=== PATIENT | male | born 1945 | race Two or more races ===

== ENCOUNTER 2017-09-30 19:52 | Inpatient (IN) | payer MEDICARE ==
[2017-09-30] MEDS: ASPIRIN 81 MG PO STA ×3 (20:36→20:40)
[2017-09-30 20:41] LABS: Basophils % (A) 0 %; Eosinophils # (A) 0.5 k/uL (0-0.7); Eosinophils % (A) 6 %; HGB 14.8 gm/dL (13.0-17.5); Lymphocytes # (A) 1.8 k/uL (1.0-4.8); Lymphocytes % (A) 21 %; MCHC 32.2 g/dL (31.0-37.0); MCV 86.9 fL (80.0-100.0); Mean Platelet Volume 7.3; Monocytes # (A) 0.5 k/uL (0-1.0); Monocytes % (A) 6 %; Neutrophils # (A) 5.5 k/uL (1.3-7.7); Neutrophils % (A) 65 %; Platelet Count 199 k/uL (150-450); RBC 5.29 m/uL (4.30-5.90); RDW 14.7 % (11.5-15.5); WBC 8.5 k/uL (3.8-10.6)
[2017-09-30 20:53] LABS: Albumin 3.7 g/dL (3.5-5.0); Calcium 9.8 mg/dL (8.4-10.2); Total Bilirubin 0.9 mg/dL (0.2-1.3)
[2017-09-30 20:55] LABS: Partial Thromboplastin Time 22.1 sec (22.0-30.0); Prothrombin Time 9.9 sec (9.0-12.0)
--- NOTE | 2017-09-30 21:02 | XR ---
EXAMINATION TYPE: XR chest 2V DATE OF EXAM: 09/30/2017 COMPARISON: NONE HISTORY: Chest pain TECHNIQUE: Frontal and lateral views of the chest are obtained. FINDINGS: Heart and mediastinum are normal. Lungs are clear. There is hiatal hernia. Diaphragm is no rmal. There are chest leads. Bony thorax is intact. IMPRESSION: No active cardia pulmonary disease. Hiatal hernia.
--- NOTE | 2017-09-30 21:11 | ED ---
Chest Pain HPI - General Chief Complaint: Chest Pain Stated Complaint: chest pain Time Seen by Provider: 09/30/17 20:08 Source: patient Mode of arrival: wheelchair Limitations: no limitations - History of Present Illness Initial Comments: This is a 72-year-old male with a history of CAD with multiple angioplasties in the past who presents emergency department for chest pain. The patient states that he's been having episodes of epigastric pain and burping over the last few weeks. It seems to be associated with food. He states that today however he ate a bagel and developed a burping however then got some significant chest pressure. He states it felt very similar to when he had to have cardiac procedures done in the past. He states that he has not had an angioplasty for approximately 20 years however. The patient states he does not have the chest pain currently. He has no short of breath. No radiation of the pain. No diaphoresis. He states that he's got most of his care out of [facility]. Denies any other acute complaints at this time. - Related Data Home Medications Medication Instructions Recorded Confirmed Aspirin EC [Ecotrin Low Dose] 81 mg PO DAILY 09/30/17 09/30/17 Cholecalciferol (Vitamin D3) 2,000 unit PO DAILY 09/30/17 09/30/17 [Vitamin D3] Levothyroxine Sodium [Synthroid] 100 mcg PO HS 09/30/17 09/30/17 Metoprolol Succinate [Toprol XL] 200 mg PO DAILY 09/30/17 09/30/17 Multivitamin [Men's Multi-Vitamin] 1 tab PO DAILY 09/30/17 09/30/17 Rosuvastatin Calcium [Crestor] 40 mg PO HS 09/30/17 09/30/17 Ubidecarenone [Co Q-10] 100 mg PO DAILY 09/30/17 09/30/17 Allergies Allergy/AdvReac Type Severity Reaction Status Date / Time cashew nut Allergy Swelling Verified 09/30/17 20:52 Fish Containing Products Allergy Swelling Verified 09/30/17 20:52 mold Allergy Swelling Verified 09/30/17 20:52 Penicillins Allergy Swelling Verified 09/30/17 20:52 watermelon Allergy Swelling Verified 09/30/17 20:52 Review of Systems ROS Statement: Those systems with pertinent positive or pertinent negative responses have been documented in the HPI. ROS Other: All systems not noted in ROS Statement are negative. EKG Findings - EKG Comments: EKG Findings:: EKG is showing normal sinus rhythm with a rate of 70. There is no abnormal ST segment changes or T-wave inversions. QTC is 442. Other intervals appear normal. The patient does have multiple PVCs. Past Medical History Past Medical History: Coronary Artery Disease (CAD), GERD/Reflux, Hyperlipidemia , Hypertension, Myocardial Infarction ([place]) History of Any Multi-Drug Resistant Organisms: None Reported Past Surgical History: Adenoidectomy, Heart Catheterization With Stent, Hernia Repair, Tonsillectomy Past Psychological History: No Psychological Hx Reported Smoking Status: Former smoker Past Alcohol Use History: Occasional Past Drug Use History: None Reported General Exam - General Exam Comments Initial Comments: Constitutional: Awake alert Appears comfortable Head: Normocephalic atraumatic Eyes: no conjunctival injection No scleral icterus EOMI Neck: No JVD Supple Heart: Regular rate rhythm normal S1-S2 no murmurs Lungs: Clear to auscultation bilaterally No wheezing No rales Abdomen: Soft nondistended nontender Extremities: Non edematous DP pulses intact Radial pulses intact Neuro: A&Ox3 No focal neurologic deficits Psych: Appropriate mood and affect Limitations: no limitations Course Vital Signs 09/30/17 09/30/17 09/30/17 19:57 20:31 22:43 Temperature 98.0 F 98.0 F Pulse Rate 70 61 54 L Pulse Rate [ 64 Geographic Analyst ] Respiratory 18 18 18 Rate Blood Pressure 166/96 166/91 164/100 O2 Sat by Pulse 98 96 98 Oximetry Chest Pain MDM - MDM Is a 72-year-old male who presents emergency department for chest pain. The patient had an EKG and troponin which were negative. The patient denies having chest pain emergency department. The patient does have a significant history for CAD and thus I like to keep him in the hospital for further evaluation. He did agree to stay in observation for cardiology evaluation. Dr. Stephens accepts the admission. Disposition Clinical Impression: Chest pain Disposition: ADMITTED IP TO THIS HOSP Condition: Stable
[2017-09-30 21:17] LABS: Creatine Kinase MB 2.4 ng/mL (0.0-2.4); Troponin I 0.02 ng/mL (0.000-0.034)
[2017-09-30] MEDS ORDERED: NITROGLYCERIN SL TABS 0.4 MG TAB SUBLINGUAL PRN (23:03)
[2017-10-01 01:23] LABS: Creatine Kinase MB 2.5 ng/mL (0.0-2.4); Troponin I 0.174 ng/mL (0.000-0.034)
[2017-10-01] MEDS ORDERED: HEPARIN SODIUM,PORCINE 5,000 UNIT/ML 1 ML VIAL IV ONE (01:34)
[2017-10-01] MEDS ORDERED: HEPARIN SODIUM,PORCINE 5,000 UNIT/ML 1 ML VIAL IV PRN (01:34)
[2017-10-01] MEDS: HEPARIN SOD,PORK IN 0.45% NACL 25,000 UNIT in 0.45% NACL 1 500ML.BAG IV SCH (02:17)
[2017-10-01 06:39] LABS: Cholesterol 134 mg/dL (<200); HDL Cholesterol 35 mg/dL (40-60); LDL Cholesterol,Calculated 74 mg/dL (0-99); Triglycerides 124 mg/dL (<150)
[2017-10-01 06:56] LABS: Creatine Kinase MB 2.1 ng/mL (0.0-2.4)
[2017-10-01 06:57] LABS: Troponin I 0.155 ng/mL (0.000-0.034)
--- NOTE | 2017-10-01 07:45 | P.CRDCN ---
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 Beside that he does have hypertension and dyslipidemia. He was here in [place] with his family when he started experiencing chest discomfort, as a pressure across the chest, with some radiation to the left arm as well as numbness in the left arm. The patient presented to the emergency room and was admitted to the hospital for further evaluation and management. He continues to have mild chest discomfort. The EKG showed sinus rhythm with T-wave inversion in the anteroseptal leads quite concerning for ischemia giving that the EKG changes are dynamic. The cardiac enzymes were checked and came in to be also abnormal with abnormal CK- MB as well as troponin. The patient was admitted to the hospital and he was started on heparin IV as well as aspirin. I did not give him the metoprolol because his heart rate has been low. I am going to add lisinopril to the current medical regimen. I would also resume his Crestor. I ordered an echocardiogram was Doppler as well to assess for wall motion abnormalities and the left ventricular systolic function. Giving the ongoing chest discomfort, abnormal cardiac enzymes, and abnormal troponin, as well as the previous history of coronary artery disease and prior angioplasty and stenting I did recommend proceeding with a coronary angiogram. The patient expressed the feeling that he would like to be transferred to [facility] where he can be seen and evaluated by his primary concrete float maker. Past Medical History Past Medical History: Coronary Artery Disease (CAD), GERD/Reflux, Hyperlipidemia , Hypertension, Myocardial Infarction ([place]) Last Myocardial Infarction Date:: 1995 History of Any Multi-Drug Resistant Organisms: None Reported Past Surgical History: Adenoidectomy, Heart Catheterization With Stent, Hernia Repair, Tonsillectomy Past Anesthesia/Blood Transfusion Reactions: No Reported Reaction Date of Last Stent Placement:: 1995 Past Psychological History: No Psychological Hx Reported Smoking Status: Former smoker Past Alcohol Use History: Occasional Past Drug Use History: None Reported - Past Family History Mother Family Medical History: Coronary Artery Disease (CAD), Diabetes Mellitus, Myocardial Infarction ([place]) Father Family Medical History: Cancer, Coronary Artery Disease (CAD), Myocardial Infarction ([place]) Additional Family Medical History / Comment(s): Multiple myloma Medications and Allergies Home Medications Medication Instructions Recorded Confirmed Type Aspirin EC [Ecotrin Low Dose] 81 mg PO DAILY 09/30/17 09/30/17 History Cholecalciferol (Vitamin D3) 2,000 unit PO DAILY 09/30/17 09/30/17 History [Vitamin D3] Levothyroxine Sodium [Synthroid] 100 mcg PO HS 09/30/17 09/30/17 History Metoprolol Succinate [Toprol XL] 200 mg PO DAILY 09/30/17 09/30/17 History Multivitamin [Men's Multi-Vitamin] 1 tab PO DAILY 09/30/17 09/30/17 History Rosuvastatin Calcium [Crestor] 40 mg PO HS 09/30/17 09/30/17 History Ubidecarenone [Co Q-10] 100 mg PO DAILY 09/30/17 09/30/17 History Allergies Allergy/AdvReac Type Severity Reaction Status Date / Time cashew nut Allergy Swelling Verified 09/30/17 20:52 Fish Containing Products Allergy Swelling Verified 09/30/17 20:52 mold Allergy Swelling Verified 09/30/17 20:52 Penicillins Allergy Swelling Verified 09/30/17 20:52 watermelon Allergy Swelling Verified 09/30/17 20:52 Physical Exam Vitals: Vital Signs Temp Pulse Pulse Resp BP BP Pulse Ox 10/01/17 04:00 97 F L 58 L 18 169/89 99 10/01/17 00:00 97 F L 54 L 18 160/92 98 09/30/17 23:25 97 F L 54 L 18 160/92 98 09/30/17 23:17 55 L 18 166/98 96 09/30/17 23:03 98 09/30/17 22:43 98.0 F 54 L 18 164/100 98 09/30/17 20:31 61 64 18 166/91 96 09/30/17 19:57 98.0 F 70 18 166/96 98 Intake and Output 09/30/17 10/01/17 10/01/17 22:59 06:59 14:59 Intake Total 102.212 Output Total 0 Balance 102.212 Intake: Intake, IV Titration 102.212 Amount Heparin Sod,Pork in 0.45% 102.212 NaCl 25,000 unit In 0.45 % NaCl 1 500ml.bag @ 20 mls/hr IV .Q24H [facility] Rx#: [id number] Oral 0 Output: Urine 0 Other: Voiding Method Toilet # Voids 2 Weight 98.883 kg 96.8 kg - Constitutional General appearance: no acute distress - Respiratory Respiratory: bilateral: CTA - Cardiovascular Rhythm: regular Heart sounds: normal: S1, S2 Abnormal Heart Sounds: systolic murmur Results 09/30/17 20:18 09/30/17 20:18 Cardiac Enzymes 09/30/17 09/30/17 10/01/17 Range/Units 20:18 20:18 00:10 AST 24 (17-59) U/L CK-MB (CK-2) 2.4 2.5 H* (0.0-2.4) ng/mL Troponin I 0.020 0.174 H* (0.000-0.034) ng/mL 10/01/17 Range/Units 06:00 AST (17-59) U/L CK-MB (CK-2) 2.1 (0.0-2.4) ng/mL Troponin I 0.155 H* (0.000-0.034) ng/mL Coagulation 09/30/17 10/01/17 Range/Units 20:18 06:00 PT 9.9 (9.0-12.0) sec APTT 22.1 31.7 H (22.0-30.0) sec Lipids 10/01/17 Range/Units 06:00 Triglycerides 124 (<150) mg/dL Cholesterol 134 (<200) mg/dL HDL Cholesterol 35 L (40-60) mg/dL CBC 09/30/17 Range/Units 20:18 WBC 8.5 (3.8-10.6) k/uL RBC 5.29 (4.30-5.90) m/uL Hgb 14.8 (13.0-17.5) gm/dL Hct 46.0 (39.0-53.0) % Plt Count 199 (150-450) k/uL Comprehensive Metabolic Panel 09/30/17 Range/Units 20:18 Sodium 139 (137-145) mmol/L Potassium 4.0 (3.5-5.1) mmol/L Chloride 101 (98-107) mmol/L Carbon Dioxide 28 (22-30) mmol/L BUN 24 H (9-20) mg/dL Creatinine 0.99 (0.66-1.25) mg/dL Glucose 121 H (74-99) mg/dL Calcium 9.8 (8.4-10.2) mg/dL AST 24 (17-59) U/L ALT 34 (21-72) U/L Alkaline Phosphatase 59 (38-126) U/L Total Protein 6.0 L (6.3-8.2) g/dL Albumin 3.7 (3.5-5.0) g/dL Current Medications Generic Name Dose Route Start Last Admin Trade Name Freq PRN Reason Stop Dose Admin Aspirin 325 mg 10/01/17 09:00 Aspirin PO DAILY [facility] Heparin Sodium (Porcine) 0 unit 10/01/17 01:34 10/01/17 06:40 Heparin IV 4,000 unit PER PROTOCOL PRN Administration Low PTT Protocol Heparin Sodium/Sodium Chloride 500 mls @ 20 mls/hr 10/01/17 01:45 10/01/17 06 :41 25,000 unit/ Sodium Chloride IV 15 units/kg/hr .Q24H [facility] 29.04 mls/hr Titration Protocol Nitroglycerin 0.4 mg 09/30/17 23:03 Nitrostat SUBLINGUAL Q5M PRN Chest Pain Intake and Output 09/30/17 10/01/17 10/01/17 22:59 06:59 14:59 Intake Total 102.212 Output Total 0 Balance 102.212 Intake: Intake, IV Titration 102.212 Amount Heparin Sod,Pork in 0.45% 102.212 NaCl 25,000 unit In 0.45 % NaCl 1 500ml.bag @ 20 mls/hr IV .Q24H [facility] Rx#: [id number] Oral 0 Output: Urine 0 Other: Voiding Method Toilet # Voids 2 Weight 98.883 kg 96.8 kg 09/30/17 20:18 09/30/17 20:18 Assessment and Plan Assessment: Assessment #1 acute non-ST elevation myocardial infarction #2 ongoing chest discomfort secondary to the above #3 known history of coronary artery disease and prior coronary artery angioplasty and stenting with unknown details #4 dyslipidemia #5 hypertension Plan #1 I did recommend proceeding with coronary angiogram. The patient is going to Dr. his and it is possible transferred to [facility] #2 continue aspirin, heparin IV, as well as resume statin and start the patient on metoprolol #3 obtain an echocardiogram was Doppler to assess the LV function and for any wall motion abnormalities #4 follow-up with the patient. Thank you for allowing us participate in his care and we will continue following up with the patient.
[2017-10-01] MEDS ORDERED: LISINOPRIL 5 MG TAB PO SCH (09:00)
[2017-10-01] MEDS ORDERED: ASPIRIN 325 MG TAB PO SCH (09:00)
[2017-10-01] MEDS ORDERED: SODIUM CHLORIDE 0.9% 1,000 ML IV ONE (11:55)
[2017-10-01] MEDS ORDERED: MIDAZOLAM 2 MG/2 ML VIAL IV ONE (12:25)
[2017-10-01] MEDS ORDERED: LIDOCAINE 2% INJ 20 MG/ML SQ ONE (12:26)
[2017-10-01] MEDS ORDERED: VERAPAMIL SYRINGE (5 MG/10 ML) INTRAARTER ONE (12:28)
[2017-10-01] MEDS ORDERED: HEPARIN SODIUM 1,000 UN/ML (10ML VL) IV ONE (12:30)
--- NOTE | 2017-10-01 12:43 | P.HPIM ---
History of Present Illness 72-year-old gentleman with history of previous coronary artery disease and angina class in the past follows with a cardiology and try [place] came in with complaints of chest pain on and off pressure-like sensation constant mild radiating to the left thumb. Patient does have significant EKG changes with T- wave inversion in anteroseptal leads with and minimally elevated troponin because of which cardiology is consulted and recommended cardiac catheterization patient decided to go for cardiac catheterization here in the hospital this hospital patient will undergo cardiac cath today patient is on IV heparin. Patient is not on beta miguelito because of his bradycardia. Patient was initially started on lisinopril patient is concerned about his previous fracture of lisinopril on him because of which patient lisinopril was discontinued and the was started on amlodipine for his blood pressure. Patient will undergo cardiac catheterization today. And chest pain is nonpleuritic not associated with food denied any shortness of breath diaphoresis Review of Systems REVIEW OF SYSTEMS: CONSTITUTIONAL: No fever, no malaise, no fatigue. HEENT: No recent visual problems or hearing problems. Denied any sore throat. CARDIOVASCULAR: No orthopnea, PND, no palpitations, no syncope. PULMONARY: No shortness of breath, no cough, no hemoptysis. GASTROINTESTINAL: No diarrhea, no nausea, no vomiting, no abdominal pain. Normoactive bowel sounds. NEUROLOGICAL: No headaches, no weakness, no numbness. HEMATOLOGICAL: Denies any bleeding or petechiae. GENITOURINARY: Denies any burning micturition, frequency, or urgency. MUSCULOSKELETAL/RHEUMATOLOGICAL: Denies any joint pain, swelling, or any muscle pain. ENDOCRINE: Denies any polyuria or polydipsia. The rest of the 14-point review of systems is negative. Past Medical History Past Medical History: Coronary Artery Disease (CAD), GERD/Reflux, Hyperlipidemia , Hypertension, Myocardial Infarction ([place]) Last Myocardial Infarction Date:: 1995 History of Any Multi-Drug Resistant Organisms: None Reported Past Surgical History: Adenoidectomy, Heart Catheterization With Stent, Hernia Repair, Tonsillectomy Past Anesthesia/Blood Transfusion Reactions: No Reported Reaction Date of Last Stent Placement:: 1995 Past Psychological History: No Psychological Hx Reported Smoking Status: Former smoker Past Alcohol Use History: Occasional Past Drug Use History: None Reported - Past Family History Mother Family Medical History: Coronary Artery Disease (CAD), Diabetes Mellitus, Myocardial Infarction ([place]) Father Family Medical History: Cancer, Coronary Artery Disease (CAD), Myocardial Infarction ([place]) Additional Family Medical History / Comment(s): Multiple myloma Medications and Allergies Home Medications Medication Instructions Recorded Confirmed Type Aspirin EC [Ecotrin Low Dose] 81 mg PO DAILY 09/30/17 09/30/17 History Cholecalciferol (Vitamin D3) 2,000 unit PO DAILY 09/30/17 09/30/17 History [Vitamin D3] Levothyroxine Sodium [Synthroid] 100 mcg PO HS 09/30/17 09/30/17 History Metoprolol Succinate [Toprol XL] 200 mg PO DAILY 09/30/17 09/30/17 History Multivitamin [Men's Multi-Vitamin] 1 tab PO DAILY 09/30/17 09/30/17 History Rosuvastatin Calcium [Crestor] 40 mg PO 09/30/17 09/30/17 History Ubidecarenone [Co Q-10] 100 mg PO DAILY 09/30/17 09/30/17 History Allergies Allergy/AdvReac Type Severity Reaction Status Date / Time cashew nut Allergy Swelling Verified 09/30/17 20:52 Fish Containing Products Allergy Swelling Verified 09/30/17 20:52 mold Allergy Swelling Verified 09/30/17 20:52 Penicillins Allergy Swelling Verified 09/30/17 20:52 watermelon Allergy Swelling Verified 09/30/17 20:52 Physical Exam Vitals: Vital Signs Temp Pulse Pulse Resp BP BP Pulse Ox 10/01/17 08:35 97.2 F L 64 18 147/86 96 10/01/17 04:00 97 F L 58 L 18 169/89 99 10/01/17 00:00 97 F L 54 L 18 160/92 98 09/30/17 23:25 97 F L 54 L 18 160/92 98 09/30/17 23:17 55 L 18 166/98 96 09/30/17 23:03 98 09/30/17 22:43 98.0 F 54 L 18 164/100 98 09/30/17 20:31 61 64 18 166/91 96 09/30/17 19:57 98.0 F 70 18 166/96 98 Intake and Output 09/30/17 10/01/17 10/01/17 22:59 06:59 14:59 Intake Total 102.212 Output Total 0 Balance 102.212 Intake: Intake, IV Titration 102.212 Amount Heparin Sod,Pork in 0.45% 102.212 NaCl 25,000 unit In 0.45 % NaCl 1 500ml.bag @ 20 mls/hr IV .Q24H [facility] Rx#: [id number] Oral 0 Output: Urine 0 Other: Voiding Method Toilet # Voids 2 Weight 98.883 kg 96.8 kg PHYSICAL EXAMINATION: GENERAL: The patient is alert and oriented x3, not in any acute distress. Well developed, well nourished. HEENT: Pupils are round and equally reacting to light. EOMI. No scleral icterus. No conjunctival pallor. Normocephalic, atraumatic. No pharyngeal erythema. No thyromegaly. CARDIOVASCULAR: S1 and S2 present. No murmurs, rubs, or gallops. PULMONARY: Chest is clear to auscultation, no wheezing or crackles. ABDOMEN: Soft, nontender, nondistended, normoactive bowel sounds. No palpable organomegaly. MUSCULOSKELETAL: No joint swelling or deformity. EXTREMITIES: No cyanosis, clubbing, or pedal edema. NEUROLOGICAL: Gross neurological examination did not reveal any focal deficits. SKIN: No rashes. Results CBC & Chem 7: 09/30/17 20:18 09/30/17 20:18 Labs: Abnormal Lab Results - Last 24 Hours (Table) 09/30/17 10/01/17 10/01/17 Range/Units 20:18 00:10 06:00 APTT (22.0-30.0) sec BUN 24 H (9-20) mg/dL Glucose 121 H (74-99) mg/dL CK-MB (CK-2) 2.5 H* (0.0-2.4) ng/mL Troponin I 0.174 H* 0.155 H* (0.000-0.034) ng/mL Total Protein 6.0 L (6.3-8.2) g/dL HDL Cholesterol (40-60) mg/dL Lipase 453 H (23-300) U/L 10/01/17 10/01/17 Range/Units 06:00 06:00 APTT 31.7 H (22.0-30.0) sec BUN (9-20) mg/dL Glucose (74-99) mg/dL CK-MB (CK-2) (0.0-2.4) ng/mL Troponin I (0.000-0.034) ng/mL Total Protein (6.3-8.2) g/dL HDL Cholesterol 35 L (40-60) mg/dL Lipase (23-300) U/L Thrombosis Risk Factor Assmnt - Choose All That Apply Any of the Below Risk Factors Present?: No Each Risk Factor Represents 2 Points: Age 61-74 years Other congenital or acquired thrombophilia - If yes, enter type in comment: No Thrombosis Risk Factor Assessment Total Risk Factor Score: 2 Thrombosis Risk Factor Assessment Level: Low Risk Assessment and Plan Plan: -Possible non-ST elevation myocardial infarction: Further management as mentioned above continue with dual antiplatelet therapy for now and a statin for now. -Gastroesophageal reflux disease -Hypertension -History of coronary artery disease in the past. For above-mentioned chronic medical problems patient will be resumed and continued on appropriate home medications patient will be started on amlodipine for elevated blood pressure.
[2017-10-01] MEDS ORDERED: BIVALIRUDIN BOLUS 250 MG/50 ML IV ONE (12:57)
[2017-10-01] MEDS ORDERED: BIVALIRUDIN 250 MG in SODIUM CHLORIDE 0.9% 50 ML IV ONE (12:57)
[2017-10-01] MEDS ORDERED: IOPAMIDOL-370 125ML BTL INJ ONE (13:10)
[2017-10-01] MEDS ORDERED: NITROGLYCERIN 1000MCG/10ML SYRINGE INTRACORON ONE (13:10)
[2017-10-01] MEDS ORDERED: MAG HYDROX/AL HYDROX/SIMETH 30 ML CUP PO PRN (13:20)
[2017-10-01] MEDS ORDERED: NITROGLYCERIN SL TABS 0.4 MG TAB SUBLINGUAL PRN (13:20)
[2017-10-01] MEDS ORDERED: RX INFO: IV CONTRAST WAS GIVEN 1 EACH MISC MISCELLANE PRN (13:20)
[2017-10-01] MEDS ORDERED: ZOLPIDEM 5 MG TAB PO PRN (13:20)
[2017-10-01] MEDS ORDERED: ATROPINE SULFATE 0.1 MG/ML 10ML SYRINGE IV PRN (13:20)
[2017-10-01] MEDS ORDERED: TICAGRELOR 90 MG TAB PO ONE (13:22)
[2017-10-01] MEDS ORDERED: IOPAMIDOL-300 100ML BTL INJ ONE (13:22)
[2017-10-01] MEDS ORDERED: SODIUM CHLORIDE 0.9% 1,000 ML IV SCH (13:30)
--- NOTE | 2017-10-01 14:55 | CC ---
CARDIAC CATHETERIZATION REPORT DATE OF SERVICE: October 01, 2017 PERFORMING PHYSICIAN: Wellington He MD, [place]. PROCEDURE PERFORMED: 1. Selective right and left coronary angiogram. 2. Successful stenting of the proximal LAD using 3.0 x 23 mm Xience WAYNE with good angiographic results. 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 He was ruled in for acute non ST elevation myocardial infarction. The EKG showed sinus rhythm with dynamic T-wave changes in the anteroseptal leads quite concerning for ischemia. The cardiac enzymes came in to be abnormal as well. The patient continues to have ongoing chest discomfort and because of that, a heart catheterization was recommended. APPROACH: Right radial artery. COMPLICATION: None. LEVEL OF SEDATION: Moderate with sedation length of 44 minutes. PROCEDURE DESCRIPTION: After obtaining an informed consent, the patient was brought to the cardiac central lab technician. The right radial artery was cannulated using micropuncture technique, the micropuncture wire passed easily then I placed a 6-English sheath in the right radial artery. After that I gave the patient 2 mg of verapamil IA and 10,000 units of heparin IV given as well. Subsequently I did selective right and left coronary angiogram using JR4 and JL3.5 catheters. Subsequently I did intervene on the LAD. Please see a separate paragraph for that. SELECTIVE CORONARY ANGIOGRAM: 1. RCA is a large caliber vessel and is a dominant vessel. The RCA appeared to have mild diffuse disease only. It is calcified. Distally bifurcates into PDA and PLV branches both are angiographically normal. 2. The left main is calcified with mild disease only. It bifurcates into left circumflex and left anterior descending artery. 3. The left circumflex is a large caliber vessel and is a nondominant vessel. The proximal circ appeared to have mild disease only. The mid circ does have mild disease only as well and gives rise into a large OM branch which seems to be angiographically normal. The circ after the OM continues to be moderate caliber vessel in the AV groove. 4. The LAD: The proximal LAD right after the takeoff from the left main appeared to have a tight lesion in the range of 99%. There is another lesion just before the bifurcation of a diagonal branch appeared to be in the range of 70%. The first diagonal branch appears to be angiographically normal. The previous stent in the mid LAD was seen with intermediate in-stent restenosis. The LAD distally appeared to be angiographically normal. PCI OF THE LAD: Anticoagulation was initiated using Angiomax. Subsequently I took JL3.5 guide and the left main was engaged. A whisper wire was used to wire the left anterior descending artery where the wire was positioned distally in the LAD. Subsequently I did balloon angioplasty using 2.5 x 15 mm balloon and the balloon was inflated under 14 atmospheres for 20 seconds x3. After that I deployed 3.0 x 23 mm Xience WAYNE where the stent was positioned under fluoroscopy guidance and deployed under 14 atmospheres for 20 seconds. The following angiogram showed good angiographic results without any proximal or edge dissection and with good YOLANDE-3 flow in the LAD. CONCLUSION: 1. Acute non ST elevation myocardial infarction in this 72-year-old gentleman with known history of coronary artery disease. 2. Heavily calcified right and left coronary systems. 3. Mild to moderate diffuse disease involving the RCA which is a dominant vessel. 4. Mild disease involving a calcified left main. 5. Mild disease involving the left circumflex coronary artery. 6. Critical disease involving the proximal LAD. 7. Successful stenting of the LAD in the proximal portion using 3.0 x 23 mm Xience WAYNE with good angiographic results. POSTPROCEDURE MANAGEMENT: 1. Maximize medical treatment. 2. Aggressive cholesterol control. 3. High-intensity statin. 4. Follow up with the patient. MMODL / IJN: [id number] /
[2017-10-01] MEDS: TICAGRELOR 90 MG TAB PO SCH (20:10)
[2017-10-01] MEDS ORDERED: ATORVASTATIN 80 MG TAB PO SCH (21:00)
[2017-10-02] MEDS: HEPARIN SOD,PORK IN 0.45% NACL 25,000 UNIT in 0.45% NACL 1 500ML.BAG IV SCH (00:29)
[2017-10-02 04:27] VITALS: RESP 18
[2017-10-02] MEDS: TICAGRELOR 90 MG TAB PO SCH (07:47)
[2017-10-02] MEDS: amLODIPine 5 MG TAB PO SCH ×2 (07:48→11:29)
[2017-10-02 07:53] VITALS: PULSE 114; TEMP 97.6
[2017-10-02] MEDS ORDERED: ASPIRIN 81 MG PO SCH (09:00)
[2017-10-02] MEDS ORDERED: LOSARTAN 25 MG TAB PO SCH (09:45)
[2017-10-02] MEDS ORDERED: METOPROLOL TARTRATE 50 MG TAB PO SCH (09:45)
--- NOTE | 2017-10-02 10:20 | ECHOF ---
Referral Reason:nstemi MEASUREMENTS -------- HEIGHT: 182.9 cm WEIGHT: 94.3 kg BP: 145/80 RVIDd: 3.5 cm (< 3.3) IVSd: 1.4 cm (0.6 - 1.1) LVIDd: 4.2 cm (3.9 - 5.3) LVPWd: 1.3 cm (0.6 - 1.1) IVSs: 2.0 cm LVIDs: 2.7 cm LVPWs: 1.2 cm LA Diam: 3.3 cm (2.7 - 3.8) LAESV Index (A-L): 55.46 ml/m Ao Diam: 4.3 cm (2.0 - 3.7) AV Cusp: 1.9 cm (1.5 - 2.6) LA Diam: 3.2 cm (2.7 - 3.8) MV EXCURSION: 14.056 mm (> 18.000) MV EF SLOPE: 50 mm/s (70 - 150) EPSS: 0.7 cm MV E Merritt: 0.41 m/s MV DecT: 227 ms MV A Merritt: 0.84 m/s MV E/A Ratio: 0.49 RAP: 5.00 mmHg FINDINGS -------- Undetermined rhythm. This was a technically adequate study. The left ventricular size is normal. There is moderate concentric left ventricular hypertrophy. O verall left ventricular systolic function is low-normal with, an EF between 50 - 55 %. Branford Hypokin esis. The right ventricle is mild to moderately enlarged. The left atrial size is normal. LA is severely dilated >40 ml/m2 The right atrial size is normal. There is mild aortic valve sclerosis. There is no evidence of aortic regurgitation. Mild mitral annular calcification present. Mild mitral regurgitation is present. Mild tricuspid regurgitation present. There is no evidence of pulmonary hypertension. The right v entricular systolic pressure, as measured by Doppler, is {RVSP}. Trace/mild (physiologic) pulmonic regurgitation. The aortic root size is normal. There is no pericardial effusion. CONCLUSIONS -------- 1. The left ventricular size is normal. 2. There is moderate concentric left ventricular hypertrophy. 3. Overall left ventricular systolic function is low-normal with, an EF between 50 - 55 %. 4. Branford Hypokinesis. 5. The right ventricle is mild to moderately enlarged. 6. The left atrial size is normal. 7. LA is severely dilated >40 ml/m2 8. The right atrial size is normal. 9. There is mild aortic valve sclerosis. 10. Mild mitral annular calcification present. 11. Mild mitral regurgitation is present. 12. Mild tricuspid regurgitation present. 13. There is no evidence of pulmonary hypertension. 14. The right ventricular systolic pressure, as measured by Doppler, is {RVSP}. 15. Trace/mild (physiologic) pulmonic regurgitation. 16. The aortic root size is normal. 17. There is no pericardial effusion. [employer] INST[employer]ER: Carine Nova RDCS
[2017-10-02 10:29] VITALS: BP 136/90
[2017-10-02 10:46] VITALS: BMI 28.3
--- NOTE | 2017-10-02 11:00 | P.PN ---
Subjective Progress Note Date: 10/02/17 Principal diagnosis: Non-STEMI This is a pleasant 72-year-old gentleman who lives in the [facility], his wood calker is also in that area. He has a known history of hypertension, hyperlipidemia, coronary artery disease with prior stent placement. He presented to the hospital with a non-Q-wave myocardial infarction, he was taken to the catheterization lab and underwent angioplasty with stent placement to the LAD. Patient has been up ambulating in the hallway this morning without any difficulty. Denies any chest pain in his breathing is stable. His heart rate this morning is in the 1 teens, he was taking Toprol-XL 200 mg daily prior to coming in, he was not on that here, but had been started on Norvasc. We will discontinue the Norvasc, patient states she's had an issue with that in the past, we will resume his Toprol, starting at a 50 mg dose, add losartan as well to his medication regime. Echocardiogram with Doppler study was performed which revealed an ejection fraction of 50-55% with apical hypokinesia noted. Hemodynamically the patient is stable. Creatinine 0.9 today. Objective - Vital Signs Vital signs: Vital Signs Temp 97.6 F 10/02/17 07:48 Pulse 114 H 10/02/17 07:48 Resp 18 10/02/17 07:48 BP 136/90 10/02/17 10:29 Pulse Ox 97 10/02/17 07:48 Intake & Output 10/01/17 10/02/17 10/02/17 18:59 06:59 18:59 Intake Total 558 1080 240 Output Total 750 Balance -192 1080 240 Weight 94.6 kg Intake: IV 408 Intake, IV Titration 150 300 Amount Sodium Chloride 0.9% 1, 150 300 000 ml @ 100 mls/hr IV . Q10H MERLYN Rx#:[id number] Oral 780 240 Output: Urine 750 Other: Voiding Method Toilet Toilet # Voids 1 - Exam PHYSICAL EXAMINATION: GENERAL: 72-year-old gentleman in no apparent distress at the time of my examination HEENT: Head is atraumatic, normocephalic. Pupils equal, round. Sclera anicteric. Conjunctiva are clear. Mucous membranes of the mouth are moist. Neck is supple. There is no elevated jugular venous pressure.] bruit is heard. HEART EXAMINATION: Heart S1, S2 normal. No murmur or gallop heard. CHEST EXAMINATION: Lungs are clear to auscultation and precussion. No chest wall tenderness is noted on palpation or with deep breathing. ABDOMEN: Soft, nontender. Bowel sounds are heard. No organomegaly noted. EXTREMITIES: 2+ peripheral pulses with no evidence of peripheral edema and no calf tenderness noted. Right radial site clean and dry, good distal pulse. NEUROLOGIC patient is awake, alert and oriented ?-3. . - Labs CBC & Chem 7: 09/30/17 20:18 10/02/17 05:45 Assessment and Plan Plan: Assessment #1 acute non-ST elevation myocardial infarction #2 s/p LAD stent #3 known history of coronary artery disease and prior coronary artery angioplasty and stenting with unknown details #4 dyslipidemia #5 hypertension Plan From cardiology's perspective, patient may be able to be discharged home today. Echocardiogram with Doppler study was performed which revealed a normal left ventricular systolic function. He has been instructed to follow-up with his wood calker in the [place] area within one week. He will be discharged home on aspirin 81 mg daily, Lipitor 80 mg daily, losartan 25 mg daily, metoprolol 50 mg daily, Brilinta 90 mg twice a day, and sublingual nitroglycerin as needed for chest pain. DNP note has been reviewed, I agree with a documented findings and plan of care. Patient was seen and examined.
--- NOTE | 2017-10-02 12:46 | P.DS ---
Providers Date of admission: 10/02/17 09:37 Attending physician: Emily Stephens Consults: 09/30/17 23:03 Consult Physician Urgent Consulting Provider: Cardiology Lai Consult Reason/Comments: chest pain Do you want consulting provider notified?: Yes, Notify in am 10/01/17 13:21 Consult Physician Routine Consulting Provider: Che Hoyt Consult Reason/Comments: Post Interventional patient Do you want consulting provider notified?: Already Contacted Primary care physician: [facility] Course: 72-year-old gentleman was admitted secondary to non-ST elevation myocardial infarction, status post cardiac catheterization and stenting of LAD. Patient is chest pain-free cleared by cardiology is being discharged today in stable medical condition to home. PHYSICAL EXAMINATION: GENERAL: The patient is alert and oriented x3, not in any acute distress. Well developed, well nourished. HEENT: Pupils are round and equally reacting to light. EOMI. No scleral icterus. No conjunctival pallor. Normocephalic, atraumatic. No pharyngeal erythema. No thyromegaly. CARDIOVASCULAR: S1 and S2 present. No murmurs, rubs, or gallops. PULMONARY: Chest is clear to auscultation, no wheezing or crackles. ABDOMEN: Soft, nontender, nondistended, normoactive bowel sounds. No palpable organomegaly. MUSCULOSKELETAL: No joint swelling or deformity. EXTREMITIES: No cyanosis, clubbing, or pedal edema. NEUROLOGICAL: Gross neurological examination did not reveal any focal deficits. SKIN: No rashes. Assessment and Plan Plan: - non-ST elevation myocardial infarction: -Gastroesophageal reflux disease -Hypertension -History of coronary artery disease in the past. Patient Condition at Discharge: Stable Plan - Discharge Summary Discharge Rx Participant: No New Discharge Prescriptions: New Losartan [Cozaar] 25 mg PO DAILY #30 tab Metoprolol Tartrate [Lopressor] 50 mg PO DAILY #30 tab Nitroglycerin Sl Tabs [Nitrostat] 0.4 mg SUBLINGUAL Q5M PRN #25 tab PRN Reason: Chest Pain Ticagrelor [Brilinta] 90 mg PO BID #60 tab Continue Aspirin EC [Ecotrin Low Dose] 81 mg PO DAILY Rosuvastatin Calcium [Crestor] 40 mg PO HS Discontinued Metoprolol Succinate [Toprol XL] 200 mg PO DAILY No Action Levothyroxine Sodium [Synthroid] 100 mcg PO HS Ubidecarenone [Co Q-10] 100 mg PO DAILY Multivitamin [Men's Multi-Vitamin] 1 tab PO DAILY Cholecalciferol (Vitamin D3) [Vitamin D3] 2,000 unit PO DAILY Discharge Medication List Aspirin EC [Ecotrin Low Dose] 81 mg PO DAILY 09/30/17 [History] Cholecalciferol (Vitamin D3) [Vitamin D3] 2,000 unit PO DAILY 09/30/17 [History] Levothyroxine Sodium [Synthroid] 100 mcg PO HS 09/30/17 [History] Multivitamin [Men's Multi-Vitamin] 1 tab PO DAILY 09/30/17 [History] Rosuvastatin Calcium [Crestor] 40 mg PO HS 09/30/17 [History] Ubidecarenone [Co Q-10] 100 mg PO DAILY 09/30/17 [History] Losartan [Cozaar] 25 mg PO DAILY #30 tab 10/02/17 [Rx] Metoprolol Tartrate [Lopressor] 50 mg PO DAILY #30 tab 10/02/17 [Rx] Nitroglycerin Sl Tabs [Nitrostat] 0.4 mg SUBLINGUAL Q5M PRN #25 tab 10/02/17 [Rx ] Ticagrelor [Brilinta] 90 mg PO BID #60 tab 10/02/17 [Rx] Follow up Appointment(s)/Referral(s): Monroe Cadena MD [Primary Care Provider] - 10/22/17 3:30 pm (With Dr. Cadena.) Jose Fuentes MD [REFERRING] - 10/09/17 2:00 pm (At [place] location with Charis Gould NP. ) Patient Instructions/Handouts: Heart Healthy Diet (DC), Safe Use of Antiplatelet Medication (DC), Coronary Intravascular Stent Placement (DC), After Radial Heart Catheterization (GEN) Activity/Diet/Wound Care/Special Instructions: Brilinta coupon given to patient, medications to be filled at [facility] Pts Brillinta Copay is $45/month-first 30 days filled for free in [facility] pharmacy Discharge Disposition: HOME SELF-CARE
== END 2017-10-02 12:48 | disposition home or self-care (01) | DRG 247 ==
LOC: EC 19:52 → 6SEL 23:03 → OBSVTOIN 10-02 09:37
PROVIDERS: ADMIT Internal Medicine; ATTEND Internal Medicine
PROC: 027034Z Dilation of Coronary Artery, One Artery with Drug-eluting Intraluminal Device, Percutaneous Approach (ICD-10-PCS; principal; 2017-10-01 11:30)
PROC: B211YZZ Fluoroscopy of Multiple Coronary Arteries using Other Contrast (ICD-10-PCS; 2017-10-01 11:30)
DX: I21.4 Non-ST elevation (NSTEMI) myocardial infarction (principal); T82.855A Stenosis of coronary artery stent, initial encounter; I25.10 Atherosclerotic heart disease of native coronary artery without angina pectoris; E78.5 Hyperlipidemia, unspecified; I10 Essential (primary) hypertension; Z79.82 Long term (current) use of aspirin; Z79.890 Hormone replacement therapy; Z79.899 Other long term (current) drug therapy; Z91.018 Allergy to other foods; Z88.0 Allergy status to penicillin; Z91.013 Allergy to seafood; Z91.048 Other nonmedicinal substance allergy status; K21.9 Gastro-esophageal reflux disease without esophagitis; I25.2 Old myocardial infarction; Z95.5 Presence of coronary angioplasty implant and graft; Z87.891 Personal history of nicotine dependence; Z82.49 Family history of ischemic heart disease and other diseases of the circulatory system; Z83.3 Family history of diabetes mellitus; Z80.7 Family history of other malignant neoplasms of lymphoid, hematopoietic and related tissues; Y84.0 Cardiac catheterization as the cause of abnormal reaction of the patient, or of later complication, without mention of misadventure at the time of the procedure
CPT/HCPCS: 36415; 71046; 80053; 80061; 82550; 82553; 82565; 83690; 84484; 85025; 85610; 85730; 93005; 93306; 93454; 99285